=== PATIENT | male | born 1960 | race Caucasian/White ===

== ENCOUNTER 2024-11-29 07:38 | Day surgery (SDC) | payer OTHER, SELFPAY ==
[2024-11-26 11:12] VITALS: BMI 31.8
--- NOTE | 2024-11-27 13:27 | P.HP_ITS ---
History of Present Illness *Admission Date: 11/29/24 *History of present illness: Mr. Hubbard is a 64-year-old gentleman who is here for screening/surveillance colonoscopy. The patient had had been having a sore throat and some intermittent swallowing difficulty with liquids. He was having a lot of phlegm in the throat and some belching. and some belching. His EGD with me in May 2023 showed some cricopharyngeal spasm and small proximal esophageal inlet patch that was ablated. He also had some mild esophageal dysmotility and mild reflux. The examination is deemed medically necessary for screening/surveillance colonoscopy. The patient has been seen, interviewed and examined prior to the procedure by both myself and the anesthesia provider. [facility] Disclaimer: The information contained in this section may have been updated after the patient was seen, as this information can be updated by other users. Medical History No significant past medical history Surgical History History of excision of lesion History of repair of biceps tendon History of colonoscopy History of tonsillectomy Family History Other Family history of kidney cancer Family history of prostate cancer Social History (Updated 11/29/24 @ 08:20 by Satinder Esposito CRNA) Smoking Status: Never smoker alcohol intake: current substance use type: denies use current occupational status: retired Travel in the last 8 weeks?: None Have you lived/traveled outside [place] in past 30 days?: No Contact w/someone who lives/traveled outside [place] past 30 days?: No Exposure to someone with infectious disease in past 14 days?: No Do you have a fever (greater than 100.4 F or 38 C)?: No Have you tested positive for COVID-19?: No Exposed to someone with COVID-19 in past 14 days?: No Do you have a sore throat?: No Do you have a cough?: No Do you have any weakness?: No Do you have any diarrhea?: No Are you experiencing any unusual bleeding?: No Do you have any muscle aches/pain?: No Do you have any abdominal pain?: No Are you experiencing loss of taste or smell?: No Review of Systems Review of Systems Review of systems (narrative): Negative *Cardiovascular Comments: Negative *Gastrointestinal Comments: Negative *Genitourinary Comments: Negative *Musculoskeletal Comments: Negative *Neurologic Comments: Negative Meds Home Medications and Allergies Home Medications ?Medication ?Instructions ?Recorded ?Confirmed ?Type zolpidem 5 mg tablet (Ambien) 5 mg PO HS 11/26/2411/11 History New Prescriptions to Start Prescriptions: Allergies Allergy/AdvReac Type Severity Reaction Status Date / Time No Known Allergies Allergy Verified 11/29/24 07:58 Exam Data for Last 24 hours I & O for Last 24 hours: Intake & Output 11/24/24 11/25/24 11/26/24 11/27/24 23:59 23:59 23:59 23:59 Weight 235 lb *Routine HEENT Exam Head: Present normocephalic Eye: Present EOMI and PERRL ENT: Present mucous membranes moist *Routine Neck Exam Neck: Present supple *Routine Respiratory Exam Respiratory: Present CTA bilaterally *Routine Cardiovascular Exam Cardiovascular: Present RRR *Routine Abdominal Exam Abdominal: Present soft and normoactive bowel sounds; Absent tenderness *Routine Rectal Exam Rectal:: deferred *Routine Genitalia Exam Genitalia:: deferred *Routine Extremities Exam Extremities: Absent cyanosis, clubbing or edema *Routine Skin Exam Skin: Present warm; Absent rash *Routine Neurological Exam Neurological: Present alert and oriented X3 Assessment and Plan *Assessment and plan (1) Screening for colon cancer: Status: Acute Category: Medical Code(s): Z12.11 - Encounter for screening for malignant neoplasm of colon Plan A/P: 1. Screening for colon cancer is the preprocedural diagnosis. The patient will be anesthetized/sedated using MAC sedation. The patient has been seen and examined. Cardiac and lung assessment prior to the examination is stable. Proceed with planned screening colonoscopy.
--- NOTE | 2024-11-29 06:37 | HMH.PROCNOTE ---
[facility] Procedure Note Date: 11/29/24 Time: 09:04 Procedure Note:: Colonoscopy Procedure Report: Colonoscopy with cold snare polypectomy Endoscopist: Skyler Lux II, MD Referring physician: Cosmo Salguero MD Date of Procedure: November 29, 2024 Equipment: Olympus [id number] adult colonoscope Sedation: MAC sedation Indication: Mr. Hubbard is a 64-year-old gentleman who is here for screening/surveillance colonoscopy. The patient's last colonoscopy was 10 years ago. He reports no abdominal pain, weight loss, change in his bowel habits or rectal bleeding. He reports no family history of colon cancer. His father and brother had prostate cancer. His father also had head and neck cancer. The patient had had been having a recurrent sore throat and some intermittent swallowing difficulty with liquids. He was having a lot of phlegm in the throat. He is due to see ENT. His EGD with me in May 2023 showed some cricopharyngeal spasm and small proximal esophageal inlet patch that was ablated. He also had some mild esophageal dysmotility and mild reflux. The examination is deemed medically necessary for screening/surveillance colonoscopy. Procedure: Prior to the procedure, a history and physical exam was performed, and patient's medications and allergies were reviewed. The risks, benefits and alternatives of the sedation and procedure were discussed with the patient. All questions were answered and informed consent was obtained. The patient was brought to the procedure room. Patient identification and proposed procedure were verified by the physician and the nurse. The patient was placed in a left lateral decubitus position and the scope was passed under direct vision. Throughout the procedure, the patient's blood pressure, pulse, and oxygen saturations were monitored continuously. The colonoscopy was accomplished without difficulty. The patient tolerated the procedure well. Findings: On digital rectal examination there was normal rectal tone. There were no external hemorrhoids. The prostate was 2+, smooth, soft, symmetric without nodules. The colonoscope was introduced through the anal canal to the rectum and advanced to the cecum. The ileocecal valve and appendiceal orifice were identified. The scope was advanced a short distance into the ileum which appeared grossly normal. The scope was then withdrawn into the colon. There was a single 4 mm polyp in the transverse colon removed via cold snare polypectomy. The remaining cecum, ascending and transverse colon and mucosa were grossly normal. There were scattered diverticuli throughout the descending and sigmoid colon (LEFT colon). The rectum itself was normal. Upon retroflexion within the rectum there were grade 2 internal hemorrhoids. The preparation was excellent throughout with Chadwicks Preparation Score of 9. The cecal time was 12 minutes. Impression: 1. Diminutive 4 mm transverse colon polyp 2. Left-sided diverticulosis 3. Grade 2 internal hemorrhoids Plan: I will follow-up the polyp histology and recommend repeat screening/surveillance colonoscopy again in 7 years based upon the pathology. I would encourage psyllium bulking fiber supplementation on a maintenance basis. Based upon his family history, I we will check PSA level.
[2024-11-29 07:59] VITALS: BP 169/96; PULSE 61; RESP 18; TEMP 36.6; O2SAT 98
[2024-11-29] MEDS: LACTATED RINGERS 1000ML 1,000 ML 50 ML IV (08:08)
--- NOTE | 2024-11-29 08:19 | P.PNANES_ITS ---
[facility] Disclaimer: The information contained in this section may have been updated after the patient was seen, as this information can be updated by other users. Medical History No significant past medical history Surgical History History of excision of lesion History of repair of biceps tendon History of colonoscopy History of tonsillectomy Family History Other Family history of kidney cancer Family history of prostate cancer Social History Smoking Status: Never smoker alcohol intake: current substance use type: denies use current occupational status: retired Travel in the last 8 weeks?: None [facility] Anesthesia Checklist Patient Identification Patient Identification: Arm Band Structural Data Admitted From: Home Planned Operative Procedure/s: Colonoscopy Consent for Planned Operative Procedure(s) Verified: Yes Verified Documents: Surgical Consent and History and Physical NPO Status Verified Time NPO: 00:00 Additional verifications Anesthesia Reactions: No Airway Assessment Mallampati Score:: Class II C-Spine Mobility Assessed: Yes TMJ Mobility Assessed: Yes Neurological Assessment Level of Consciousness: Awake, Alert and Appropriate Anesthesia Plan Anesthesia Risk discussed: Yes Anesthesia Plan: Verified ASA Class: II Anesthesia Type: MAC
[2024-11-29 09:06] VITALS: BP 128/73; PULSE 64; RESP 16; TEMP 36.1; O2SAT 96
[2024-11-29 09:16] VITALS: BP 140/79; PULSE 59; RESP 18; TEMP 36.1; O2SAT 97
[2024-11-29 09:26] VITALS: BP 140/85; PULSE 50; RESP 18; TEMP 36.1; O2SAT 100
[2024-11-29 09:36] VITALS: BP 147/88; PULSE 58; RESP 18; TEMP 36.1; O2SAT 100
== END 2024-11-29 09:36 | disposition home or self-care (01) ==
PROVIDERS: PCP Family Medicine; Visit Provider Internal Medicine Gastroenterology
PROC: 0DJD8ZZ Inspection of Lower Intestinal Tract, Via Natural or Artificial Opening Endoscopic (ICD-10-PCS; CPT 45378; principal; 2024-11-29 09:00)
DX: Z12.11 Encounter for screening for malignant neoplasm of colon (principal); D12.3 Benign neoplasm of transverse colon; K57.30 Diverticulosis of large intestine without perforation or abscess without bleeding; K64.1 Second degree hemorrhoids; Z80.42 Family history of malignant neoplasm of prostate
CPT/HCPCS: 45385; 36415; G0103; J2003; J2704; J7120